=== PATIENT | female | born 1955 | race Caucasian/White ===

== ENCOUNTER 2017-09-04 07:26 | Day surgery (SDC) | payer MEDICAID ==
[~2017-09-04] VITALS: Ht 160 cm; Wt 83.9 kg
[2017-09-04] MEDS ORDERED: MEPERIDINE HCL/PF 100 MG/ML AMP ONE (08:25)
[2017-09-04] MEDS ORDERED: MIDAZOLAM HCL 5 MG/5 ML VIAL ONE (08:26)
[2017-09-04] MEDS: MIDAZOLAM HCL 5 MG/5 ML VIAL ONE ×4 (10:59→16:20)
[2017-09-04 17:46] VITALS: BP_SYST 125
== END 2017-09-04 12:35 | disposition home or self-care (01) ==
LOC: SDS 07:26 → SMU 10:18 → SDS 12:35
PROVIDERS: ATTEND Internal Medicine Gastroenterology
DX: K64.8 Other hemorrhoids (principal); E11.9 Type 2 diabetes mellitus without complications; I10 Essential (primary) hypertension; Z79.84 Long term (current) use of oral hypoglycemic drugs; Z79.82 Long term (current) use of aspirin; F10.21 Alcohol dependence, in remission; Z68.32 Body mass index [BMI] 32.0-32.9, adult
CPT/HCPCS: 45378; 82962; J2175; J2250; 45380